=== PATIENT | female | born 1950 | race Caucasian/White ===

== ENCOUNTER 2021-07-08 17:53 | Emergency (ER) | payer MEDICARE, OTHER ==
[~2021-07-08] VITALS: Ht 170.2 cm; Wt 79.4 kg
--- NOTE | 2021-07-08 21:00 | NUR ---
PT HAVE ALREADY CALLED [employer] AND ALREADY IN CONTACT WITH THEM. PT ALSO VERBALIZED THAT SHE HAVE ALREADY CALLED [facility] TO REPORT.
[2021-07-08 21:15] VITALS: BP 133/75
--- NOTE | 2021-07-08 21:15 | NUR ---
pt is medically stable d/c. Patient discharged to home in stable condition. Written and verbal after care instructions given. Patient verbalizes understanding of instruction.
--- NOTE | 2021-07-08 21:24 | NUR ---
Josefina bowie in EDM - 07/08/21 at 2311 by LORENZA ATTEMPTED TO CONTACT [employer] [facility]. WAS ON HOLD FOR 30 MINS WITH NO ANSWER.
== END 2021-07-08 21:30 | disposition home or self-care (01) ==
LOC: ER 17:59
DX: S70.02XA Contusion of left hip, initial encounter (principal); S09.8XXA Other specified injuries of head, initial encounter; I10 Essential (primary) hypertension; J44.9 Chronic obstructive pulmonary disease, unspecified; F32.9 Major depressive disorder, single episode, unspecified; F41.9 Anxiety disorder, unspecified; F43.10 Post-traumatic stress disorder, unspecified; Z88.5 Allergy status to narcotic agent; Y08.89XA Assault by other specified means, initial encounter; Y93.89 Activity, other specified; Y92.89 Other specified places as the place of occurrence of the external cause; Y99.8 Other external cause status
CPT/HCPCS: 70450-TC; 72125-TC; 72192-TC